=== PATIENT | female | born 1945 | race Caucasian/White ===

== ENCOUNTER 2025-03-07 23:21 | Inpatient (IN) | payer MEDICARE, OTHER ==
[2025-03-08 01:20] LABS: ABSOLUTE IMMATURE GRANULOCYTES 0.03 x10^3/uL (0.0-0.031); BASOPHILS # 0.04 x10^3/uL (0.01-0.08); EOSINOPHIL % 0.1 % (0.7-5.8); EOSINOPHILS # 0.01 x10^3/uL (0.04-0.36); HEMOGLOBIN 11.9 g/dL (11.2-15.7); MCHC 32.2 g/dl (32.2-35.5); MEAN CELL VOLUME 89.8 fl (79.4-94.8); MEAN PLT VOLUME 9.9 fl (9.4-12.3); MONOCYTE # 0.91 x10^3/uL (0.24-0.86); MONOCYTE % 9.2 % (4.7-12.5); PLATELET COUNT 225 x10^3/uL (182-369); RDW 12.9 % (12.4-16.6)
[2025-03-08] MEDS ORDERED: ACETAMINOPHEN INJECTION 100 ML ONE (01:20)
[2025-03-08] MEDS ORDERED: ONDANSETRON 4 MG/2 ML VIAL ONE (01:20)
[2025-03-08] MEDS ORDERED: FAMOTIDINE 10 MG/ML VIAL IVPB ONE (01:21)
[2025-03-08] MEDS: FAMOTIDINE 20 MG/50 ML IVPB 20 MG/50 ML MG IVPB ONE (01:30)
[2025-03-08] MEDS: ACETAMINOPHEN 1000 MG/100 ML BAG IVPB ONE (01:30)
[2025-03-08] MEDS: ONDANSETRON 4 MG/2 ML VIAL IVPUSH ONE (01:30)
[2025-03-08] MEDS: SODIUM CHLORIDE 0.9% 500 ML INFUS.BAG IV ONE (01:30)
[2025-03-08 01:31] LABS: INR 1.02 (0.83-1.09); PROTHROMBIN TIME (PATIENT) 11.1 SEC (9.7-13.0)
[2025-03-08 01:33] LABS: ACTIVATED PTT 28.2 SECONDS (25.2-36.5)
[2025-03-08 01:44] LABS: POTASSIUM 4.3 mmol/L (3.5-5.1)
[2025-03-08 01:45] LABS: MAGNESIUM 1.9 mg/dL (1.8-2.4)
[2025-03-08 01:46] LABS: CALCIUM 10.1 mg/dL (8.5-10.1)
[2025-03-08 01:47] LABS: ALBUMIN 3.9 g/dl (3.4-5.0); BLOOD UREA NITROGEN 21.2 mg/dL (7-18)
[2025-03-08 01:49] LABS: CREATININE 0.6 mg/dL (0.55-1.3)
[2025-03-08 01:50] LABS: PHOSPHOROUS 3.4 mg/dL (2.5-4.9)
[2025-03-08 01:51] LABS: BILIRUBIN,TOTAL 1.3 mg/dL (0.2-1); TOT PROT 7.6 g/dl (6.4-8.2)
[2025-03-08 02:25] LABS: BILIRUBIN,DIRECT 0.7 mg/dL (0.0-0.2)
[2025-03-08] MEDS: CEFEPIME HCL 2 GM VIAL (RESTRICTED TO ID) IVPB ONE (03:28)
[2025-03-08] MEDS: LACTATED RINGERS SOLUTION 1000 ML INFUS.BAG IV ONE (03:28)
[2025-03-08] MEDS ORDERED: CEFEPIME HCL/D5W 2 GM/50 ML BAG IVPB ONE (03:32)
[2025-03-08] MEDS: KETOROLAC TROMETHAMINE 15 MG/ML VIAL IVPUSH ONE (03:55)
[2025-03-08 03:58] LABS: URINE APPEARANCE CLEAR; URINE BILIRUBIN NEGATIVE (NEGATIVE); URINE COLOR YELLOW; URINE GLUCOSE (UA) NEGATIVE (NEGATIVE); URINE KETONE NEGATIVE (NEGATIVE); URINE LEUK ESTERASE NEGATIVE (NEGATIVE); URINE NITRITE NEGATIVE (NEGATIVE); URINE PROTEIN NEGATIVE (NEGATIVE); URINE UROBILINOGEN 0.2 mg/dL (0.2-1.0)
[2025-03-08] MEDS ORDERED: KETOROLAC TROMETHAMINE 15 MG/ML VIAL ONE ×2 (04:35→08:35)
[2025-03-08] MEDS: LACTATED RINGERS SOLUTION 1,000 ML/1,000 ML INFUS.BAG IV SCH (05:13)
[2025-03-08] MEDS: KETOROLAC TROMETHAMINE 15 MG/ML VIAL IVPUSH PRN (08:37)
[2025-03-08 11:44] VITALS: BMI 27.8
[2025-03-09] MEDS: ACETAMINOPHEN 500 MG TABLET (FP) PO PRN (04:54)
[2025-03-09 08:11] LABS: HEMATOCRIT 35.6 % (34.1-44.9); HEMOGLOBIN 11.6 g/dL (11.2-15.7); MCHC 32.6 g/dl (32.2-35.5); MEAN CELL VOLUME 88.8 fl (79.4-94.8); MEAN PLT VOLUME 10.5 fl (9.4-12.3); PLATELET COUNT 211 x10^3/uL (182-369)
[2025-03-09 08:33] LABS: POTASSIUM 3.2 mmol/L (3.5-5.1)
[2025-03-09 08:45] LABS: CALCIUM 8.9 mg/dL (8.5-10.1)
[2025-03-09 08:46] LABS: ALBUMIN 3.1 g/dl (3.4-5.0); BLOOD UREA NITROGEN 15.7 mg/dL (7-18); MAGNESIUM 1.6 mg/dL (1.8-2.4)
[2025-03-09 08:49] LABS: CREATININE 0.6 mg/dL (0.55-1.3); PHOSPHOROUS 3.5 mg/dL (2.5-4.9)
[2025-03-09 08:51] LABS: TOT PROT 6.4 g/dl (6.4-8.2)
[2025-03-09 08:57] LABS: BILIRUBIN,TOTAL 4.4 mg/dL (0.2-1)
[2025-03-09] MEDS ORDERED: CEFEPIME HCL 1 GM VIAL (RESTRICTED TO ID) IVPB SCH ×2 (10:00)
[2025-03-09] MEDS: CEFEPIME HCL/D5W 1 GM/50 ML PREMIX BAG IVPB SCH (11:50)
[2025-03-09] MEDS: LACTATED RINGERS SOLUTION 1,000 ML/1,000 ML INFUS.BAG IV SCH (11:59)
[2025-03-09] MEDS: CEFTRIAXONE 2 GM-D5W BAG 2 GM/50 ML BAG IVPB SCH (17:33)
[2025-03-10 07:37] LABS: HEMATOCRIT 35.8 % (34.1-44.9); HEMOGLOBIN 11.6 g/dL (11.2-15.7); MCHC 32.4 g/dl (32.2-35.5); MEAN CELL VOLUME 89.5 fl (79.4-94.8); MEAN PLT VOLUME 10.1 fl (9.4-12.3); PLATELET COUNT 188 x10^3/uL (182-369); RDW 13.2 % (12.4-16.6)
[2025-03-10 07:57] LABS: POTASSIUM 3.1 mmol/L (3.5-5.1)
[2025-03-10 08:00] LABS: ALBUMIN 2.8 g/dl (3.4-5.0); BLOOD UREA NITROGEN 11.2 mg/dL (7-18); CALCIUM 8.8 mg/dL (8.5-10.1); MAGNESIUM 1.7 mg/dL (1.8-2.4)
[2025-03-10 08:04] LABS: CREATININE 0.5 mg/dL (0.55-1.3)
[2025-03-10 08:05] LABS: TOT PROT 6.2 g/dl (6.4-8.2)
[2025-03-10 08:09] LABS: BILIRUBIN,TOTAL 1.7 mg/dL (0.2-1)
[2025-03-10] MEDS: MAGNESIUM SULFATE IN WATER 2 GM/50 ML IVPB IVPB ONE (09:48)
[2025-03-10] MEDS: KCL 10 MEQ IVPB 10 MEQ/100 ML INFUS.BAG IVPB SCH (10:38)
[2025-03-10] MEDS ORDERED: oxyCODONE HCL 5 MG TABLET PO PRN ×2 (14:40→17:53)
[2025-03-10] MEDS ORDERED: ONDANSETRON 4 MG/2 ML VIAL IVPUSH PRN ×3 (14:40→17:53)
[2025-03-10] MEDS ORDERED: SUCCINYLCHOLINE CHLORIDE 200 MG/10 ML SYRINGE ONE (14:55)
[2025-03-10] MEDS ORDERED: ROCURONIUM BROMIDE 50 MG/5 ML VIAL ONE (14:55)
[2025-03-10] MEDS ORDERED: PROPOFOL 20 ML ONE (14:55)
[2025-03-10] MEDS ORDERED: MIDAZOLAM HCL 2 MG/2 ML SINGLE DOSE VIAL ONE (14:55)
[2025-03-10] MEDS: ceFAZolin SODIUM 1 GM VIAL IVPB ONE (15:00)
[2025-03-10] MEDS: BUPIVACAINE HCL/PF 0.25% (2.5MG/ML) 10 ML VIAL IJ ONE ×2 (15:01)
[2025-03-10] MEDS ORDERED: DEXAMETHASONE SOD PHOSPHATE 4 MG/1 ML VIAL ONE (15:19)
[2025-03-10] MEDS ORDERED: HYDROmorphone HCl 2 MG/ML VIAL ONE (15:39)
[2025-03-10] MEDS ORDERED: SUGAMMADEX SODIUM 200 MG/2 ML VIAL ONE (16:29)
[2025-03-10] MEDS ORDERED: ONDANSETRON 4 MG/2 ML VIAL ONE (17:34)
[2025-03-10] MEDS: ONDANSETRON 4 MG/2 ML VIAL IVPUSH PRN (17:35)
[2025-03-10] MEDS ORDERED: KETOROLAC TROMETHAMINE 15 MG/ML VIAL IVPUSH PRN (17:53)
[2025-03-10] MEDS: LACTATED RINGERS SOLUTION 1,000 ML/1,000 ML INFUS.BAG IV SCH (18:26)
[2025-03-10 19:39] LABS: POTASSIUM 3.5 mmol/L (3.5-5.1)
[2025-03-10 19:42] LABS: MAGNESIUM 1.9 mg/dL (1.8-2.4)
[2025-03-10] MEDS: ACETAMINOPHEN 500 MG TABLET (FP) PO SCH (23:20)
[2025-03-11 07:11] LABS: HEMATOCRIT 34.4 % (34.1-44.9)
[2025-03-11 07:13] LABS: ABSOLUTE IMMATURE GRANULOCYTES 0.11 x10^3/uL (0.0-0.031); BASOPHILS # 0.03 x10^3/uL (0.01-0.08); MEAN CELL VOLUME 90.8 fl (79.4-94.8); MEAN PLT VOLUME 11.3 fl (9.4-12.3); MONOCYTE # 1.39 x10^3/uL (0.24-0.86); MONOCYTE % 8.3 % (4.7-12.5); PLATELET COUNT 166 x10^3/uL (182-369); RDW 13.3 % (12.4-16.6)
[2025-03-11 07:38] LABS: POTASSIUM 3.7 mmol/L (3.5-5.1)
[2025-03-11 07:42] LABS: ALBUMIN 2.5 g/dl (3.4-5.0)
[2025-03-11 07:43] LABS: BLOOD UREA NITROGEN 12.7 mg/dL (7-18); MAGNESIUM 1.9 mg/dL (1.8-2.4)
[2025-03-11 07:44] LABS: CALCIUM 8.5 mg/dL (8.5-10.1)
[2025-03-11 07:46] LABS: CREATININE 0.4 mg/dL (0.55-1.3)
[2025-03-11 07:47] LABS: BILIRUBIN,TOTAL 0.9 mg/dL (0.2-1); TOT PROT 5.8 g/dl (6.4-8.2)
[2025-03-11] MEDS: CEFTRIAXONE 2 GM-D5W BAG 2 GM/50 ML BAG IVPB SCH (09:06)
[2025-03-11] MEDS: LACTATED RINGERS SOLUTION 1,000 ML IV SCH (14:14)
[2025-03-12 06:49] VITALS: RESP 18
[2025-03-12 07:56] LABS: ABSOLUTE IMMATURE GRANULOCYTES 0.13 x10^3/uL (0.0-0.031); BASOPHILS # 0.04 x10^3/uL (0.01-0.08); EOSINOPHIL % 0.7 % (0.7-5.8); EOSINOPHILS # 0.08 x10^3/uL (0.04-0.36); HEMATOCRIT 32.5 % (34.1-44.9); HEMOGLOBIN 10.5 g/dL (11.2-15.7); MCHC 32.3 g/dl (32.2-35.5); MEAN CELL VOLUME 90.5 fl (79.4-94.8); MEAN PLT VOLUME 10.9 fl (9.4-12.3); MONOCYTE # 1.08 x10^3/uL (0.24-0.86); MONOCYTE % 9.7 % (4.7-12.5); PLATELET COUNT 213 x10^3/uL (182-369); RDW 13.6 % (12.4-16.6)
[2025-03-12 08:03] LABS: POTASSIUM 3.6 mmol/L (3.5-5.1)
[2025-03-12 08:04] LABS: CALCIUM 8.5 mg/dL (8.5-10.1)
[2025-03-12 08:05] LABS: ALBUMIN 2.5 g/dl (3.4-5.0); BLOOD UREA NITROGEN 9.8 mg/dL (7-18); MAGNESIUM 1.9 mg/dL (1.8-2.4)
[2025-03-12 08:08] LABS: CREATININE 0.4 mg/dL (0.55-1.3)
[2025-03-12 08:10] LABS: BILIRUBIN,TOTAL 0.7 mg/dL (0.2-1); TOT PROT 5.6 g/dl (6.4-8.2)
[2025-03-12 14:51] VITALS: BP 126/76; PULSE 85; TEMP 97.9
== END 2025-03-12 19:54 | disposition home or self-care (01) | DRG 418 ==
LOC: JER 23:21 → JERBED 03-08 04:36 → J7W 03-08 10:21
PROVIDERS: ADMIT Internal Medicine; ATTEND Physician Assistant
PROC: 0FT44ZZ Resection of Gallbladder, Percutaneous Endoscopic Approach (ICD-10-PCS; principal; 2025-03-10 13:00)
DX: K80.01 Calculus of gallbladder with acute cholecystitis with obstruction (principal); K82.1 Hydrops of gallbladder; K82.A1 Gangrene of gallbladder in cholecystitis; R73.03 Prediabetes; K21.9 Gastro-esophageal reflux disease without esophagitis; E03.9 Hypothyroidism, unspecified; R10.11 Right upper quadrant pain; R50.9 Fever, unspecified; H40.9 Unspecified glaucoma; D17.9 Benign lipomatous neoplasm, unspecified; K76.0 Fatty (change of) liver, not elsewhere classified; I10 Essential (primary) hypertension; D72.829 Elevated white blood cell count, unspecified; E87.6 Hypokalemia; E83.42 Hypomagnesemia; Z88.0 Allergy status to penicillin; Z87.11 Personal history of peptic ulcer disease
CPT/HCPCS: 0241U-QW; 36415; 71045-TC-FY; 74177-TC; 74181-TC; 76705-TC; 80053; 81003; 82248; 82550; 82553; 83605; 83690; 83735; 84100; 84132; 84484; 85025; 85027; 85610; 85730; 86850; 86900; 86901; 87040; 87086; 88304-TC; 93005; 93010; 94760; 97116-GP; 97161-GP; 99285-25; J0131; Q9967